=== PATIENT | male | born 1990 | race Caucasian/White ===

== ENCOUNTER 2017-05-21 20:51 | Emergency (ER) | payer OTHER ==
[~2017-05-21] VITALS: Ht 172.7 cm; Wt 80.0 kg
[2017-05-21 20:53] VITALS: BP 159/98; PULSE 87; RESP 16; TEMP 99.6; O2SAT 98
[2017-05-22] MEDS ORDERED: SODIUM CHLOR 0.9% 1000 ML INJ 1,000 ML IV SCH (01:41)
[2017-05-22] MEDS ORDERED: SODIUM CHLORIDE 0.9% FLUSH 10 ML FLUSH IV FLUSH PRN (01:45)
[2017-05-22] MEDS ORDERED: MORPHINE SULFATE 4 MG/ML INJ IV PUSH ONE ×2 (01:45→05:00)
[2017-05-22] MEDS ORDERED: ONDANSETRON HCL 4 MG/2 ML VIAL IVP ONE (01:45)
[2017-05-22 01:50] VITALS: BP 143/89; PULSE 81; RESP 18; O2SAT 98
--- NOTE | 2017-05-22 01:59 | PD ---
HPI Chief Complaint: Abdominal Pain Time Seen by Provider: 01:33 Travel History International Travel<30 days: No Contact w/Intl Traveler<30days: No Traveled to known affect area: No History of Present Illness HPI The patient is a 26-year-old male who presents emergency department for abdominal pain. The patient states his abdominal pain started approximately 36 hours prior to arrival. Initially the abdominal pain was located in epigastrium and periumbilical, then radiates left upper quadrant, now has radiated to the right lower quadrant. The pain is worse with walking and palpation. He does note mild nausea but denies any vomiting. He does note a few episodes of loose watery diarrhea. He denies any fever, chills, or sweats. He does have a previous history of bilateral inguinal hernia repairs, denies any history of biliary colic, cholecystitis, peritonitis, or appendicitis. Symptoms are moderate, there are no alleviating or exacerbating factors. He denies any recent international travel last 3 months. PFS Past Medical History Medical History: Denies Significant Hx Tetanus Vaccination: > 5 Years Influenza Vaccination: No Past Surgical History Abdominal Surgery: Yes (HERNIA REPAIR) Thoracic Surgery: Yes (CLOSED REDUCT RIGHT WRIST) Social History Alcohol Use: Yes (2XS WEEKLY) Tobacco Use: Yes (1 PACK PER MONTH) Substance Use: No Allergies-Medications (Allergen,Severity, Reaction): Coded Allergies: No Known Allergies (Unverified , 05/21/17) Reported Meds & Prescriptions Reported Meds & Active Scripts Active No Active Prescriptions or Reported Medications Review of Systems Except as stated in HPI: all other systems reviewed are Neg General / Constitutional: No: Fever, Chills Cardiovascular: No: Chest Pain or Discomfort Respiratory: No: Shortness of Breath Gastrointestinal: Positive: Nausea, Diarrhea, Abdominal Pain, No: Vomiting Musculoskeletal: No: Myalgias, Arthralgias Neurologic: No: Dizziness Physical Exam Narrative GENERAL: Awake, alert, pleasant 26-year-old male who appears his stated age and is in no acute respiratory distress. SKIN: Focused skin assessment warm/dry. HEAD: Atraumatic. Normocephalic. EYES: Pupils equal and round. No scleral icterus. No injection or drainage. ENT: No nasal bleeding or discharge. Mucous membranes pink and moist. NECK: Trachea midline. No JVD. CARDIOVASCULAR: Regular rate and rhythm. No murmur appreciated. RESPIRATORY: No accessory muscle use. Clear to auscultation. Breath sounds equal bilaterally. GASTROINTESTINAL: Abdomen soft, moderate tenderness right lower quadrant. No rebound tenderness, guarding, or rigidity. MUSCULOSKELETAL: No obvious deformities. No clubbing. No cyanosis. No edema. NEUROLOGICAL: Awake and alert. No obvious cranial nerve deficits. Motor grossly within normal limits. Normal speech. PSYCHIATRIC: Appropriate mood and affect; insight and judgment normal. Data Data Last Documented VS Vital Signs Date Time Temp Pulse Resp B/P Pulse Ox O2 Delivery O2 Flow Rate FiO2 05/22/17 02:04 18 05/22/17 01:50 81 143/89 98 Room Air 05/21/17 20:53 99.6 Orders Complete Blood Count With Diff (05/22/17 01:41) Comprehensive Metabolic Panel (05/22/17 01:41) Lipase (05/22/17 01:41) Urinalysis - C+S If Indicated (05/22/17 01:41) Iv Access Insert/Monitor (05/22/17 01:41) Ecg Monitoring (05/22/17 01:41) Oximetry (05/22/17 01:41) Morphine Inj (Morphine Inj) (05/22/17 01:45) Ondansetron Inj (Zofran Inj) (05/22/17 01:45) Sodium Chlor 0.9% 1000 Ml Inj (Ns 1000 M (05/22/17 01:41) Sodium Chloride 0.9% Flush (Ns Flush) (05/22/17 01:45) Oral Contrast - Adult (05/22/17 02:05) Diatrizoate Liq ( Gastrofahad Liq) (05/22/17 02:11) Ct Abd/Pel W/O Iv Contrast (05/22/17 01:41) Morphine Inj (Morphine Inj) (05/22/17 05:00) Labs Laboratory Tests Test 05/22/17 05/22/17 01:55 02:45 White Blood Count 10.3 TH/MM3 Red Blood Count 4.83 MIL/MM3 Hemoglobin 15.1 GM/DL Hematocrit 44.0 % Mean Corpuscular Volume 91.1 FL Mean Corpuscular Hemoglobin 31.3 PG Mean Corpuscular Hemoglobin 34.4 % Concent Red Cell Distribution Width 12.6 % Platelet Count 230 TH/MM3 Mean Platelet Volume 8.3 FL Neutrophils (%) (Auto) 69.8 % Lymphocytes (%) (Auto) 17.2 % Monocytes (%) (Auto) 12.6 % Eosinophils (%) (Auto) 0.2 % Basophils (%) (Auto) 0.2 % Neutrophils # (Auto) 7.2 TH/MM3 Lymphocytes # (Auto) 1.8 TH/MM3 Monocytes # (Auto) 1.3 TH/MM3 Eosinophils # (Auto) 0.0 TH/MM3 Basophils # (Auto) 0.0 TH/MM3 CBC Comment DIFF FINAL Differential Comment Sodium Level 141 MEQ/L Potassium Level 3.8 MEQ/L Chloride Level 106 MEQ/L Carbon Dioxide Level 27.0 MEQ/L Anion Gap 8 MEQ/L Blood Urea Nitrogen 11 MG/DL Creatinine 1.88 MG/DL Estimat Glomerular Filtration 44 ML/MIN Rate Random Glucose 99 MG/DL Calcium Level 9.0 MG/DL Total Bilirubin 0.7 MG/DL Aspartate Amino Transf 15 U/L (AST/SGOT) Alanine Aminotransferase 33 U/L (ALT/SGPT) Alkaline Phosphatase 90 U/L Total Protein 7.8 GM/DL Albumin 4.0 GM/DL Lipase 128 U/L Urine Color LIGHT-YELLOW Urine Turbidity CLEAR Urine pH 6.0 Urine Specific [place] 1.003 Urine Protein 30 mg/dL Urine Glucose (UA) NEG mg/dL Urine Ketones NEG mg/dL Urine Occult Blood NEG Urine Nitrite NEG Urine Bilirubin NEG Urine Urobilinogen LESS THAN 2.0 MG/DL Urine Leukocyte Esterase NEG Urine RBC LESS THAN 1 /hpf Urine WBC 1 /hpf Microscopic Urinalysis Comment CULT NOT INDICATED MDM Medical Decision Making Medical Screen Exam Complete: Yes Emergency Medical Condition: Yes Medical Record Reviewed: Yes Interpretation(s) Last Impressions Abdomen/Pelvis CT 05/22/17 0141 Signed Impressions: Service Date/Time: Monday, May 22, 2017 03:22 - CONCLUSION: 1. No evidence for appendicitis. 2. No renal calculi or hydronephrosis. Darrick Baker MD Laboratory Tests Test 05/22/17 05/22/17 01:55 02:45 White Blood Count 10.3 TH/MM3 Red Blood Count 4.83 MIL/MM3 Hemoglobin 15.1 GM/DL Hematocrit 44.0 % Mean Corpuscular Volume 91.1 FL Mean Corpuscular Hemoglobin 31.3 PG Mean Corpuscular Hemoglobin 34.4 % Concent Red Cell Distribution Width 12.6 % Platelet Count 230 TH/MM3 Mean Platelet Volume 8.3 FL Neutrophils (%) (Auto) 69.8 % Lymphocytes (%) (Auto) 17.2 % Monocytes (%) (Auto) 12.6 % Eosinophils (%) (Auto) 0.2 % Basophils (%) (Auto) 0.2 % Neutrophils # (Auto) 7.2 TH/MM3 Lymphocytes # (Auto) 1.8 TH/MM3 Monocytes # (Auto) 1.3 TH/MM3 Eosinophils # (Auto) 0.0 TH/MM3 Basophils # (Auto) 0.0 TH/MM3 CBC Comment DIFF FINAL Differential Comment Sodium Level 141 MEQ/L Potassium Level 3.8 MEQ/L Chloride Level 106 MEQ/L Carbon Dioxide Level 27.0 MEQ/L Anion Gap 8 MEQ/L Blood Urea Nitrogen 11 MG/DL Creatinine 1.88 MG/DL Estimat Glomerular Filtration 44 ML/MIN Rate Random Glucose 99 MG/DL Calcium Level 9.0 MG/DL Total Bilirubin 0.7 MG/DL Aspartate Amino Transf 15 U/L (AST/SGOT) Alanine Aminotransferase 33 U/L (ALT/SGPT) Alkaline Phosphatase 90 U/L Total Protein 7.8 GM/DL Albumin 4.0 GM/DL Lipase 128 U/L Urine Color LIGHT-YELLOW Urine Turbidity CLEAR Urine pH 6.0 Urine Specific [place] 1.003 Urine Protein 30 mg/dL Urine Glucose (UA) NEG mg/dL Urine Ketones NEG mg/dL Urine Occult Blood NEG Urine Nitrite NEG Urine Bilirubin NEG Urine Urobilinogen LESS THAN 2.0 MG/DL Urine Leukocyte Esterase NEG Urine RBC LESS THAN 1 /hpf Urine WBC 1 /hpf Microscopic Urinalysis Comment CULT NOT INDICATED Differential Diagnosis Differential diagnoses includes appendicitis, mesenteric adenitis, enteritis, colitis, diverticulitis, atypical cholecystitis, viral syndrome. Narrative Course IV was established, labs are drawn and sent, and the patient was placed on cardiac telemetry monitoring and continuous pulse oximetry monitoring. The patient was administered morphine, Zofran, and IV fluids. CT of the abdomen and pelvis with oral and IV contrast was ordered to evaluate for appendicitis. The patient's white count is normal, mild elevation monocytes. Lipase are unremarkable, creatinine is slightly elevated at 1.88. CBC is negative for appendicitis, patient's symptoms may be related to viral syndrome. The patient was reevaluated, still had mild pain, therefore was redosed with morphine. The patient will be provided a copy of his labs and CT at discharge, he is advised to follow-up with her primary physician. Diagnosis Primary Impression: Abdominal pain, unspecified site Patient Instructions: General Instructions Additional Instructions: Medications as directed. Follow-up with your primary physician. Return if symptoms worsen or progress. Please provide the patient a copy of his CT results and lab results at discharge. Med/Other Pt SpecificInfo: Prescription(s) given Scripts Hydrocodone-Acetaminophen ([place])5-325 mg Tab1 Tab PO Q6H PRN (PAIN) #12 TAB Ref 0 Prov:Alok Gonsales MD 05/22/17 Ondansetron Odt (Zofran Odt)4 Mg Tab4 Mg SL Q6HR PRN (Nausea/Vomiting) #7 TAB Ref 0 Prov:Alok Gonsales MD 05/22/17 Disposition: 01 DISCHARGE HOME Condition: Stable Alok Gonsales MD May 22, 2017 01:59
[2017-05-22 02:04] VITALS: RESP 18
[2017-05-22] MEDS ORDERED: DIATRIZOATE MEGLUM/DIATRIZOATE SOD 9 ML CUP ONE (02:11)
[2017-05-22 02:31] LABS: AUTOMATED NEUTROPHIL # 7.2 TH/MM3 (1.8-7.7); BASOPHIL % 0.2 % (0.0-2.0); EOSINOPHIL % 0.2 % (0.0-4.0); HEMO FLAGS DIFF FINAL; LYMPH % 17.2 % (9.0-44.0); LYMPHOCYTE # 1.8 TH/MM3 (1.0-4.8); MEAN CELL VOLUME 91.1 FL (80.0-100.0); MEAN CORPUSCULAR HEMOGLOBIN 31.3 PG (27.0-34.0); MEAN CORPUSCULAR HGB CONC 34.4 % (32.0-36.0); MONO % 12.6 % (0.0-8.0); NEUT % 69.8 % (16.0-70.0); PLATELET COUNT 230 TH/MM3 (150-450); RED BLOOD COUNT 4.83 MIL/MM3 (4.50-5.90); RED CELL DISTRIBUTION WIDTH 12.6 % (11.6-17.2); WHITE BLOOD COUNT 10.3 TH/MM3 (4.0-11.0)
[2017-05-22 02:35] LABS: ALT (GPT) 33 U/L (12-78); ANION GAP 8 MEQ/L (5-15); AST (GOT) 15 U/L (15-37); BLOOD UREA NITROGEN 11 MG/DL (7-18); CHLORIDE 106 MEQ/L (98-107); GLOMERULAR FILTRATION RATE 44 ML/MIN (>89); POTASSIUM 3.8 MEQ/L (3.5-5.1); SODIUM (NA) 141 MEQ/L (136-145)
[2017-05-22 02:37] LABS: ALKALINE PHOSPHATASE 90 U/L (45-117); TOTAL BILIRUBIN ADULT 0.7 MG/DL (0.2-1.0)
[2017-05-22 03:09] LABS: BLOOD, URINE NEG (NEG); GLUCOSE,URINE NEG (NEG); KETONE, URINE NEG (NEG); NITRITE,URINE NEG (NEG); URINE COLOR LIGHT-YELLOW (YELLW/STRAW)
[2017-05-22 03:10] LABS: COMMENT (UR) CULT NOT INDICATED; CULTURE IF INDICATED CULT NOT INDICATED
--- NOTE | 2017-05-22 04:23 | RADRPT ---
EXAM DATE/TIME: 05/22/2017 03:22 [facility] COMPARISON: No previous studies available for comparison. INDICATIONS : Right lower quadrant pain. ORAL CONTRAST: Prescribed oral contrast ingested. RADIATION DOSE: 8.25 CTDIvol (mGy) MEDICAL HISTORY : Hernia. SURGICAL HISTORY : Hernia repair. ENCOUNTER: Initial ACUITY: 1 day PAIN SCALE: 9/10 LOCATION: Right lower quadrant abdomen TECHNIQUE: Volumetric scanning of the abdomen and pelvis was performed. Using automated exposure control and ad justment of the mA and/or kV according to patient size, radiation dose was kept as low as reasonably achievable to obtain optimal diagnostic quality images. DICOM format image data is available electro nically for review and comparison. FINDINGS: LOWER LUNGS: The visualized lower lungs are clear. LIVER: Homogeneous density without lesion. There is no dilation of the biliary tree. No calcified gall[place] es. SPLEEN: Normal size without lesion. PANCREAS: Within normal limits. KIDNEYS: Normal in size and shape. There is no mass, stone, or hydronephrosis. ADRENAL GLANDS: Within normal limits. VASCULAR: There is no aortic aneurysm. BOWEL/MESENTERY: The stomach, small bowel, and colon demonstrate no acute abnormality. There is no free intraperitone al air or fluid. ABDOMINAL WALL: Within normal limits. RETROPERITONEUM: There is no lymphadenopathy. BLADDER: No wall thickening or mass. REPRODUCTIVE: Within normal limits. INGUINAL: There is no lymphadenopathy or hernia. MUSCULOSKELETAL: Within normal limits for patient age. CONCLUSION: 1. No evidence for appendicitis. 2. No renal calculi or hydronephrosis. Darrick Baker MD on May 22, 2017 at 4:20 Board Certified Radiologist. This report was verified electronically.
[2017-05-22] MEDS ORDERED: NORC5TAB PO (05:14)
[2017-05-22] MEDS ORDERED: ZOFR4TAB3 SL (05:14)
[2017-05-22 05:33] VITALS: BP 117/70
== END 2017-05-22 05:34 | disposition home or self-care (01) ==
LOC: NEPE 20:51
DX: R10.9 Unspecified abdominal pain (principal); R11.0 Nausea; R19.7 Diarrhea, unspecified; Z72.0 Tobacco use; Z98.890 Other specified postprocedural states
CPT/HCPCS: 74176; 80053; 81001; 83690; 85025; 96361; 96374; 96375; 99285; J2270; J2405; J7030; Q9963